=== PATIENT | female | born 1980 | race Two or more races ===

== ENCOUNTER 2017-07-23 12:39 | Outpatient (CLI) | payer OTHER | END 2017-07-23 17:00 | disposition home or self-care (01) | LOC: MAMO-SONO 12:39 | DX: Z12.31 Encounter for screening mammogram for malignant neoplasm of breast (principal); I10 Essential (primary) hypertension; M54.5 Low back pain; E03.9 Hypothyroidism, unspecified; E55.9 Vitamin D deficiency, unspecified; J40 Bronchitis, not specified as acute or chronic; Z11.4 Encounter for screening for human immunodeficiency virus [HIV]; Z11.3 Encounter for screening for infections with a predominantly sexual mode of transmission; Z12.11 Encounter for screening for malignant neoplasm of colon ==

== ENCOUNTER 2017-10-28 08:21 | Outpatient (CLI) | payer OTHER | END 2017-10-28 11:58 | disposition home or self-care (01) | LOC: SONOGRAMA 08:21 | DX: R10.2 Pelvic and perineal pain (principal) ==

== ENCOUNTER → 2018-09-23 | Outpatient (CLI) | payer OTHER | END | disposition home or self-care (01) | LOC: MRI 09:15 | DX: M54.5 Low back pain (principal); E03.8 Other specified hypothyroidism; E55.9 Vitamin D deficiency, unspecified; I10 Essential (primary) hypertension; J40 Bronchitis, not specified as acute or chronic; Z01.818 Encounter for other preprocedural examination; I73.89 Other specified peripheral vascular diseases; I80.209 Phlebitis and thrombophlebitis of unspecified deep vessels of unspecified lower extremity; Z11.4 Encounter for screening for human immunodeficiency virus [HIV]; Z11.3 Encounter for screening for infections with a predominantly sexual mode of transmission; N92.1 Excessive and frequent menstruation with irregular cycle | CPT/HCPCS: 70551 ==

== ENCOUNTER → 2018-09-30 | Outpatient (CLI) | payer OTHER | END | disposition home or self-care (01) | LOC: NUCLEAR 10:00 | DX: I80.209 Phlebitis and thrombophlebitis of unspecified deep vessels of unspecified lower extremity (principal); I73.9 Peripheral vascular disease, unspecified ==

== ENCOUNTER 2019-03-29 15:27 | Outpatient (CLI) | payer OTHER | END 2019-03-29 15:30 | disposition home or self-care (01) | LOC: RAD 15:27 | DX: M54.5 Low back pain (principal); I10 Essential (primary) hypertension; E03.8 Other specified hypothyroidism; E55.9 Vitamin D deficiency, unspecified; J40 Bronchitis, not specified as acute or chronic; Z01.818 Encounter for other preprocedural examination; I73.89 Other specified peripheral vascular diseases; I80.209 Phlebitis and thrombophlebitis of unspecified deep vessels of unspecified lower extremity; J09.X2 Influenza due to identified novel influenza A virus with other respiratory manifestations; Z11.4 Encounter for screening for human immunodeficiency virus [HIV]; Z11.3 Encounter for screening for infections with a predominantly sexual mode of transmission ==

== ENCOUNTER 2020-12-10 11:57 | Emergency (ER) | payer OTHER ==
[~2020-12-10] VITALS: Ht 152.4 cm; Wt 50.3 kg
[2020-12-10] MEDS ORDERED: NORFLEX100MG PO (12:43)
== END 2020-12-10 15:08 | disposition home or self-care (01) ==
LOC: ER 11:57
DX: B34.9 Viral infection, unspecified (principal); H83.09 Labyrinthitis, unspecified ear; Z03.818 Encounter for observation for suspected exposure to other biological agents ruled out

== ENCOUNTER 2023-03-28 05:24 | Emergency (ER) | payer OTHER ==
[~2023-03-28] VITALS: Ht 152.4 cm; Wt 53.5 kg
[~2023-03-28 05:24] MED LIST: NORFLEX100MG PO
[2023-03-28 08:03] LABS: CALCIUM 8.5 mg/dL (8.5-10.1); CREATININE SERUM 0.55 mg/dL (0.55-1.02); GFR 120.07; POTASSIUM 3.28 mEq/L (3.5-5.1)
[2023-03-28 08:12] LABS: HEMATOCRIT 35.4 % (36.0-45.00); HEMOGLOBIN 11.9 g/dL (12.0-15.00); MEAN CELL VOLUME 87.3 fL (80.00-100.00); MEAN CORPUSCULAR HEMOGLOBIN 29.3 pg (27.00-32.0); MEAN CORPUSCULAR HGB CONC 33.6 g/dl (32.0-36.0); PLATELET COUNT 147 K/uL (150-450); RED BLOOD COUNT 4.05 M/uL (4.00-6.00); RED CELL DISTRIBUTION WIDTH 13.7 % (11.5-14.5)
[2023-03-28 09:10] LABS: URINE APPEARANCE Clear; URINE BILIRRUBIN Negative (NEGATIVE); URINE BLOOD Negative; URINE COLOR Yellow; URINE GLUCOSE Negative (NEGATIVE); URINE LEUKOCYTE Negative; URINE NITRATE Negative; URINE PROTEIN Trace (NEGATIVE)
[2023-03-28 09:13] LABS: URINE BACTERIA 144.8 uL (0.0-1933); URINE EPITHELIAL CELLS 7.2 uL (0.0-38.8); URINE RBC 9.4 uL (0.0-20.8); URINE WBC 11.8 uL (0.0-23.2)
== END 2023-03-28 10:26 | disposition home or self-care (01) ==
LOC: ER 05:25
PROVIDERS: General Practice
DX: N39.0 Urinary tract infection, site not specified (principal)

== ENCOUNTER 2024-02-11 13:48 | Outpatient (CLI) | payer OTHER | END 2024-02-11 13:50 | disposition home or self-care (01) | LOC: RAD 13:48 | PROVIDERS: ATTEND Internal Medicine | DX: S93.301A Unspecified subluxation of right foot, initial encounter (principal); M25.551 Pain in right hip; I10 Essential (primary) hypertension; E03.9 Hypothyroidism, unspecified; E55.9 Vitamin D deficiency, unspecified; M25.371 Other instability, right ankle; M25.771 Osteophyte, right ankle; Z11.4 Encounter for screening for human immunodeficiency virus [HIV]; Z11.3 Encounter for screening for infections with a predominantly sexual mode of transmission; Z12.11 Encounter for screening for malignant neoplasm of colon; M48.07 Spinal stenosis, lumbosacral region ==

== ENCOUNTER 2024-09-03 08:30 | Outpatient (CLI) | payer OTHER | END 2024-09-03 09:32 | disposition home or self-care (01) | LOC: MRI 08:30 | PROVIDERS: ATTEND Orthopaedic Surgery | DX: M54.2 Cervicalgia (principal); M54.50 Low back pain, unspecified | CPT/HCPCS: 72148 ==